=== PATIENT | female | born 1960 | race African-American/Black ===

== ENCOUNTER 2016-11-17 09:56 | Observation (INO) | payer OTHER ==
[~2016-11-17] VITALS: Ht 162.6 cm; Wt 103.7 kg
--- NOTE | ~2016-11-17 | CATHLAB ---
[facility] [address] [place] [address] INVASIVE PROCEDURE REPORT Name: CARRI OBRIEN Room #: 201-P ADM IN M.R.#: [id number] Admission: 11/17/16 Attend Phys: Payam Bob Discharge: Date of : 58 Date of Service: 11/19/16 0908 Report #: [id number] THIS REPORT FOR: //name// APPROVED REPORT Patient Details Patient Status: In-Patient Room #: The patient is a 56 year-old female Event Personnel Javi Moran Clinical Program Director, Angela Lockett Monitor, Nicholas Olivares RN, Briseyda Peters Knisely, Ceola RN RN, Kelly Turner RTR Monitor Procedures Performed Ultrasound guided access used. Art Access - R femoral artery* 82801 Initial Mod Sed Same Phys/QHP Gr5y 295305 27815 Mod Sed Same Phys/QHP Ea 800363 Left Heart Cath w/or w/o Coronaries [id number] [facility] Hemostasis w/ Mynx, Indication Chest pain Procedure Narrative The patient was brought urgently to the Cardiac Catheterization Laboratory and was prepped and draped in a sterile manner. The Right Groin^ was infiltrated with 1% Lidocaine subcutaneous anesthesia. A PINNACLE 6FR Sheath #[id number] sheath was inserted into the RFA^. Coronary angiography was performed using coronary diagnostic catheters. The right coronary system was accessed and visualized with a JR 4 catheter. The left coronary system was accessed and visualized with a JL 4 catheter. The left ventricle was accessed and visualized with a Pigtail catheter. Left ventricular/Aortic Valve gradient assessed via catheter pullback. Left ventriculogram was performed in 30 degree projection. Closure device was deployed with a 6 Fr Mynx. The patient tolerated the procedure well and there were no complications associated with the procedure. There was no hematoma. Intraoperative Conscious Sedation Sedation start time: 07:51 Case end Time: 08:24 Fentanyl 50.0 mcg Versed 1.0 mg Fluoro Time: 1.30 minutes [facility] [address] [place] [address] INVASIVE PROCEDURE REPORT Name: CARRI OBRIEN Room #: 201-P [facility] IN .R.#: [id number] Admission: 11/17/16 Attend Phys: Payam Bob Discharge: Date of : 58 Date of Service: 11/19/16 0908 Report #: [id number] Dose: DAP 4670.30 cGycm2 523 mGy Contrast Type and Amount: Omnipaque 100 ml Coronary Angiography The patient's coronary anatomy is right dominant. Diagnostic Cath Left Main Normal Diagonal 1 Normal Circumflex Normal OM1 Normal OM2 Normal Right Coronary Normal R PDA Normal RPLV Normal Left Ventriculography Ejection Fraction was based off patient's . The left ventricle is normal in size with normal contractility. The left ventricular ejection fraction is estimated to be 55-60%. Left ventricular wall motion abnormalities are not present. There is no mitral insufficiency. Hemodynamics The aortic pressure is 142/90 mmHg with a mean of 110 mmHg. The left ventricular pressure is 146/8 mmHg with a mean of mmHg. The left ventricular end diastolic pressure is 30 mmHg. Conclusion 1. Normal global and regional left ventricular systolic function. Ejection fraction 65% 2. Normal coronary vasculature. Right coronary dominant circulation <ELECTRONICALLY SIGNED> By: Javi Moran MD, [facility] 11/19/16907 7 7 Javi Moran MD, FACC /INF
--- NOTE | ~2016-11-17 | EKG ---
[address] [place] [address] ELECTROCARDIOGRAM REPORT Name: CARRI OBRIEN Room #: 201-P [facility] M.R.#: [id number] Admission: 11/17/16 Attend Phys: Payam Villarreal Discharge: Date of : 58 Report #: [id number] THIS REPORT FOR: //name// 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 DELVALLE : 1960 Requested By: Jeff Ames Order Number: [id number] MD: Javi Moran Measurements Intervals [place] Rate: 62 P: 46 CA: 69 QRS: 0 QRSD: 130 T: 49 QT: 451 QTc: 458 Interpretive Statements Sinus rhythm Nonspecific intraventricular conduction delay Borderline T abnormalities Compared to ECG 02/05/2014 23:49:35 No significant change was found Electronically Signed On 11-18-2016 12:38:31 CDT by Javi Moran [email or web address] <ELECTRONICALLY SIGNED> By: Javi Moran MD, [facility] 11/18/16 1238 1004 1004 Javi Moran MD, [facility] /EPI
[~2016-11-17 09:56] MED LIST: FLEXERIL PO; NAPROSYN500 MG PO; NORCO 5-325 TA1 EACH PO; PRINIVIL20 MG PO
[2016-11-17] MEDS ORDERED: HYDROCHLOROTHIA25 M1 PO (10:14)
[2016-11-17 10:18] LABS: ABSOLUTE NEUTROPHILS 2.5 thou/uL (1.4-8.2); BASOPHILS 0.5 % (0.0-2.0); HEMATOCRIT 39.2 % (37.0-47.0); HEMOGLOBIN 13.8 gm/dL (12.0-15.0); LYMPHOCYTES 37.9 % (24.0-44.0); MANUAL DIFF NO; MCH 30.8 pg (26.0-34.0); MCHC 35.3 g/dL (28.0-37.0); MCV 87.3 fL (80.0-100.0); MONOCYTES 9.8 % (1.0-8.0); PLATELET COUNT 211 thou/uL (150-400); POLYS 49.8 % (36.0-66.0); RBC 4.49 mil/uL (4.20-5.00); RDW 13.9 % (10.5-14.5); WBC 5.1 thou/uL (4.0-11.0)
[2016-11-17 10:28] LABS: CALCIUM 9.4 mg/dL (8.5-10.1); CREATININE 0.8 mg/dL (0.6-1.0); POTASSIUM 3.5 mmol/L (3.5-5.1)
[2016-11-17 10:37] LABS: ALBUMIN 3.7 g/dL (3.4-5.0); TOTAL BILIRUBIN 0.2 mg/dL (<0.1-1.0); TOTAL PROTEIN 8.3 g/dL (6.4-8.2); TROPONIN-I 0.07 ng/mL (<0.04-0.07)
[2016-11-17 11:10] VITALS: BP 120/72
[2016-11-17 11:32] VITALS: BP 120/72
[2016-11-17 11:52] LABS: CHOLESTEROL 211 mg/dL (<200); HDL CHOLESTEROL 70 mg/dL (>40); LDL CHOLESTEROL 133 mg/dL (<100); TRIGLYCERIDE 44 mg/dL (<150); VLDL 9 mg/dL (<40)
[2016-11-17 12:25] VITALS: BP 122/79
[2016-11-17 19:16] VITALS: BP 106/69
[2016-11-17 23:01] VITALS: BP 100/60
[2016-11-18 07:24] VITALS: BP 119/78
[2016-11-18 15:40] VITALS: BP 123/70
[2016-11-18 19:49] VITALS: BP 121/67
[2016-11-19] VITALS (7 sets, daily range): BP systolic 100–126; BP diastolic 59–90
[2016-11-19] MEDS ORDERED: LIPITOR10 MG PO (09:51)
== END 2016-11-19 14:40 | disposition home or self-care (01) ==
LOC: ER 09:56 → 2N 10:46 → EROBS 10:46 → 4S 11:00 → 2N 11:33
PROVIDERS: Hospitalist; Physician Assistant
DX: R07.89 Other chest pain (principal); I10 Essential (primary) hypertension; K21.9 Gastro-esophageal reflux disease without esophagitis; Z79.899 Other long term (current) drug therapy; E66.01 Morbid (severe) obesity due to excess calories; E78.5 Hyperlipidemia, unspecified